=== PATIENT | female | born 1955 | race Caucasian/White ===

== ENCOUNTER 2023-05-28 10:59 | Outpatient (CLI) | payer MEDICARE, OTHER, SELFPAY ==
--- NOTE | 2023-05-28 11:04 | XR_ITS ---
WS: [id number] Exam: XR hand LT min 3V* [id number] Date/Time of Exam: 05/28/2023 11:08 AM Reason For Exam: ganglion cyst No fracture or dislocation. A ring obscures parts of the fourth proximal phalanx. No soft tissue fore ign bodies noted. Cartilage calcification along the distal ulna. Soft tissue swelling at the DIP join t of the index finger. IMPRESSION: 1. Soft tissue swelling at the DIP joint of the index finger. 2. No fracture.
== END 2023-05-28 11:00 | disposition home or self-care (01) ==
LOC: RAD 11:02
PROVIDERS: PCP Family Medicine; Visit Provider Family Medicine
DX: M67.442 Ganglion, left hand (principal); M79.89 Other specified soft tissue disorders
CPT/HCPCS: 73130

== ENCOUNTER → 2023-07-13 13:46 | Outpatient (BNVA) | payer MEDICARE, OTHER, SELFPAY | PROVIDERS: PCP Family Medicine; Referring Provider Family Medicine; Visit Provider Dermatology | DX: D48.5 Neoplasm of uncertain behavior of skin (principal); L73.8 Other specified follicular disorders; L82.1 Other seborrheic keratosis; L56.5 Disseminated superficial actinic porokeratosis (DSAP); D18.01 Hemangioma of skin and subcutaneous tissue | CPT/HCPCS: 11102; 99203 ==

== ENCOUNTER → 2023-09-11 11:14 | Outpatient (BNVA) | payer MEDICARE, SELFPAY | PROVIDERS: PCP Family Medicine; Visit Provider Family Medicine | DX: Z01.818 Encounter for other preprocedural examination (principal) | CPT/HCPCS: 80053; 85025 ==

== ENCOUNTER → 2023-09-14 08:00 | Outpatient (BNVA) | payer MEDICARE, SELFPAY | PROVIDERS: PCP Family Medicine; Visit Provider Dermatology | DX: C44.319 Basal cell carcinoma of skin of other parts of face (principal) | CPT/HCPCS: 13132; 17311 ==

== ENCOUNTER → 2024-02-17 13:40 | Outpatient (BNVA) | payer MEDICARE, SELFPAY | DX: I10 Essential (primary) hypertension | CPT/HCPCS: 80053 ==

== ENCOUNTER 2024-03-04 09:52 | Outpatient (CLI) | payer MEDICARE, SELFPAY ==
--- NOTE | 2024-03-04 10:00 | MM_ITS ---
WS: [id number] BILATERAL SCREENING DIGITAL BREAST MAMMOGRAPHY WITH EMILY DISPLACEMENT VIEWS. CAD PERFORMED. HISTORY: screening COMPARISON: 11/25/2022, 10/25/2021 Bilateral craniocaudal and mediolateral oblique views are performed with tomosynthesis and SM. Emily displacement views in CC and MLO projection also performed. Breasts composition: There are scattered areas of fibroglandular density. Retropectoral implants remain intact. No suspicious masses or calcifications. No distortion within ei ther breast. No suspicious grouping of calcifications. MM/MM [facility] tomosynthesis [id number] IMPRESSION: BI-RADS: 2 - Benign. FOLLOW-UP: 1 Year Follow-up
== END 2024-03-04 09:53 | disposition home or self-care (01) ==
LOC: RAD 09:53
DX: Z12.31 Encounter for screening mammogram for malignant neoplasm of breast (principal); R92.323 Mammographic fibroglandular density, bilateral breasts; Z98.82 Breast implant status
CPT/HCPCS: 77063; 77067

== ENCOUNTER → 2024-12-01 08:37 | Outpatient (BNVA) | payer MEDICARE, SELFPAY | DX: I10 Essential (primary) hypertension (principal) | CPT/HCPCS: 80053; 80061; 85025 ==

== ENCOUNTER 2025-02-20 12:40 | Outpatient (CLI) | payer MEDICARE, SELFPAY ==
--- NOTE | 2025-02-20 13:05 | XRR_ITS ---
PROCEDURE INFORMATION: Exam: XR Right Shoulder Exam date and time: 02/20/2025 1:10 PM Age: 69 years old Clinical indication: Right; X3 months limited rom and and pain in shoulder, no specific injury; Additional info: Right shoulder pain TECHNIQUE: Imaging protocol: Radiologic exam of the right shoulder. Views: 2 or more views. COMPARISON: No relevant prior studies available. FINDINGS: Bones/joints: There are mild degenerative changes of the glenohumeral joint and acromioclavicular joint. Soft tissues: Normal. XR/XR shoulder RT min 2V* [id number] IMPRESSION: There are mild degenerative changes of the glenohumeral joint and acromioclavicular joint.
== END 2025-02-20 12:41 | disposition home or self-care (01) ==
LOC: RAD 12:43
DX: M25.511 Pain in right shoulder (principal); M19.011 Primary osteoarthritis, right shoulder
CPT/HCPCS: 73030

== ENCOUNTER → 2025-03-10 08:54 | Outpatient (BNVA) | payer MEDICARE, SELFPAY | PROVIDERS: Visit Provider Orthopaedic Surgery | DX: M25.511 Pain in right shoulder (principal); G89.29 Other chronic pain | CPT/HCPCS: 99204 ==

== ENCOUNTER 2025-03-13 10:36 | Outpatient (CLI) | payer MEDICARE, SELFPAY ==
--- NOTE | 2025-03-13 10:39 | MM_ITS ---
WS: [id number] BILATERAL 3D TOMOSYNTHESIS DIGITAL SCREENING MAMMOGRAPHY WITH CAD CLINICAL INFORMATION: SCREENING HISTORY: Screening mammogram. No current complaints. COMPARISON: 2023. TECHNIQUE: Bilateral CC and MLO views. FINDINGS: Stable retropectoral implants appear intact. Scattered fibroglandular densities bilaterally. No suspicious focal mass, asymmetry, calcifications, or architectural distortion. No evidence of malignancy. MM/MM scr tomosynthesis [id number] IMPRESSION: DENSITY: There are scattered areas of fibroglandular density. BI-RADS: 2 - Benign. FOLLOW UP: 1 Year Follow-up Recommend return to annual screening mammography.
== END 2025-03-13 10:37 | disposition home or self-care (01) ==
LOC: RAD 10:37
DX: Z12.31 Encounter for screening mammogram for malignant neoplasm of breast (principal); R92.323 Mammographic fibroglandular density, bilateral breasts
CPT/HCPCS: 77063; 77067

== ENCOUNTER 2025-03-15 15:37 | Outpatient (CLI) | payer MEDICARE, SELFPAY ==
--- NOTE | 2025-03-15 16:00 | MR_ITS ---
WS: [id number] MRI RIGHT SHOULDER HISTORY: shoulder pain COMPARISON: Radiograph 02/20/2025 TECHNIQUE: Multiplanar sequences of the shoulder joint are submitted. Mild AC joint arthritis. Minimal subacromial impingement. No os acromion. Normal position of the biceps tendon in the bicipital groove. There is increased fluid in the biceps tendon sheath. Mild narrowing of the glenohumeral joint. There is a cyst in the superior glenoid. Mild atrophy of the supraspinatus muscle. No rotator cuff muscle edema. There is a very small insertion site tear of the supraspinatus tendon without retraction. Additional tendinopathy noted in the supraspinatus tendon with fraying along the bursal and articular surfaces. No additional tendon tears identified. Small amount of fluid in the subscapularis recess. Increased signal throughout the labrum, greatest within the anterior and superior labrum but no definite tears are identified. MR/MR shoulder RT wo con* [id number] IMPRESSION: 1. Mild AC joint arthritis. 2. Very small insertion site tear of the supraspinatus tendon. No full-thickne ss tear or retraction. 3. Additional surface fraying along the bursal and articular surfaces of the s upraspinatus tendon and tendinopathy. 4. Intrasubstance degeneration throughout the labrum. No tear is identified. 5. Normal position of the biceps tendon with mild tenosynovitis. 6. Mild narrowing of the glenohumeral joint. Subchondral cyst in the superior glenoid.
== END 2025-03-15 15:38 | disposition home or self-care (01) ==
PROVIDERS: Visit Provider Orthopaedic Surgery
DX: M13.811 Other specified arthritis, right shoulder (principal); M75.111 Incomplete rotator cuff tear or rupture of right shoulder, not specified as traumatic; S43.431A Superior glenoid labrum lesion of right shoulder, initial encounter; X58.XXXA Exposure to other specified factors, initial encounter; M75.81 Other shoulder lesions, right shoulder
CPT/HCPCS: 73221